=== PATIENT | female | born 1985 | race Caucasian/White ===

== ENCOUNTER → 2020-02-21 13:44 | Outpatient (CLI) | payer SELFPAY ==
[2020-02-21 15:54] LABS: Absolute Lymphocyte Count 1.92 X10^3/uL (0.83-4.51); Absolute Neutrophil Count 6.8 X10^3/uL (2.0-7.7); Basophil# 0.01 X10^3/uL; Basophil% 0.1 % (0-1); Eosinophil# 0.11 X10^3/uL; Eosinophils% 1.2 % (0-5); Hematocrit 37.7 % (37-47); Hemoglobin 12.1 g/dL (12.0-15.0); Lymphocyte # 1.92 X10^3/ul (4.0); Lymphocyte % 20.5 % (19-41); Mean Corp Hgb Conc 32.1 g/dL (32-36); Mean Corpuscular Hgb 28.9 pg (27.0-32.0); Mean Corpuscular Volume 90.2 fL (81-99); Mean Platelet Vol. 9.1 fl (6.2-12.0); Monocyte# 0.47 X10^3/uL; NRBC Flagged by Analyzer 0 % (0-5); Neutrophil % 72.8 % (47-70); Platelet Count 297 K/mm3 (150-450); RBC Distribution Width CV 14.4 % (11.6-14.6); RBC Distribution Width SD 47.7 fl (35.1-43.9); Red Blood Count 4.18 M/mm3 (4.2-5.4); White Blood Count 9.4 K/mm3 (4.4-11.0)
[2020-02-21 15:55] LABS: Color, Urine Yellow (Yellow); Glucose, Dipstick Normal (Normal); Ketone-Dipstick Negative (Negative); Leukocyte Esterase-Dipstick Negative /ul (Negative); Nitrite-Dipstick Negative (Negative); Occult Blood-Urine 10 /ul (Negative); Protein-Dipstick Negative (Negative); Specific Gravity, Urine 1.005 (1.002-1.030); Urine Bilirubin Dipstick Negative (Negative); Urine Clarity Clear (Clear); Urine Urobilinogen Normal (Normal)
[2020-02-21 16:16] LABS: Thyroid Stim Hormone (TSH) 0.91 uIU/mL (0.358-3.74)
[2020-02-22 11:46] LABS: HIV - WCH Non-Reactive (Nonreactive); Hepatitis B Surface Antigen Non-Reactive (Nonreactive); Hepatitis C Antibody Non-Reactive (Nonreactive); Rubella IgG 7.9 IU/mL
[2020-02-25 03:07] LABS: Chlamydia By Nucleic Acid AMP Negative (Negative)
[2020-02-25 08:00] LABS: Gonococcus By Nucleic Acid AMP Negative (Negative)
[2020-02-27 13:16] LABS: HPV Reflexed? NOT INDICATED
[2020-02-28 01:33] LABS: Prenatal RPR NONREACTIVE (NONREACTIVE)
== END ==
PROVIDERS: PCP Family Medicine; Visit Provider Obstetrics & Gynecology
DX: Z34.82 Encounter for supervision of other normal pregnancy, second trimester (principal); Z12.4 Encounter for screening for malignant neoplasm of cervix; Z11.3 Encounter for screening for infections with a predominantly sexual mode of transmission
CPT/HCPCS: 81002; 84443; 85025; 86703; 86762; 86803; 87340; 87491; 87591; 88175; G0145

== ENCOUNTER → 2020-06-11 09:41 | Outpatient (CLI) | payer OTHER, SELFPAY ==
[2017-04-11 10:43] VITALS: BMI 28.1
[2020-06-11 11:39] LABS: Glucose Challenge Gest 1H 50g 163 mg/dL (70-140)
[2020-06-11 11:40] LABS: Hematocrit 33.2 % (37-47); Hemoglobin 10.6 g/dL (12.0-15.0); Mean Corp Hgb Conc 31.9 g/dL (32-36); Mean Corpuscular Hgb 29.4 pg (27.0-32.0); Mean Corpuscular Volume 92.2 fL (81-99); Mean Platelet Vol. 8.8 fl (6.2-12.0); Platelet Count 268 K/mm3 (150-450); RBC Distribution Width CV 13.7 % (11.6-14.6); RBC Distribution Width SD 46.5 fl (35.1-43.9); White Blood Count 8.2 K/mm3 (4.4-11.0)
== END ==
PROVIDERS: PCP Family Medicine; Visit Provider Obstetrics & Gynecology
DX: Z34.83 Encounter for supervision of other normal pregnancy, third trimester (principal)
CPT/HCPCS: 36415; 82950; 85027

== ENCOUNTER → 2020-06-19 06:42 | Outpatient (CLI) | payer OTHER, SELFPAY ==
[2020-06-19 07:26] LABS: Glucose GTT-Gestation. Fasting 84 mg/dL (<105)
[2020-06-19 08:30] LABS: Glucose GTT-Gestational 1 Hr 188 mg/dL (<190)
[2020-06-19 10:05] LABS: Glucose GTT-Gestational 2 Hr 198 mg/dL (<165)
[2020-06-19 10:47] LABS: Glucose GTT-Gestational 3 Hr 169 L (<145)
== END ==
PROVIDERS: PCP Family Medicine; Referring Provider Obstetrics & Gynecology; Visit Provider Obstetrics & Gynecology
DX: O24.912 Unspecified diabetes mellitus in pregnancy, second trimester (principal); Z3A.00 Weeks of gestation of pregnancy not specified
CPT/HCPCS: 36415; 82951; 82952

== ENCOUNTER 2020-07-02 10:31 | Outpatient (RCR) | payer OTHER, SELFPAY | END 2020-07-02 23:59 | disposition home or self-care (01) | LOC: DC 10:31 | PROVIDERS: PCP Family Medicine; Visit Provider Obstetrics & Gynecology | DX: O24.410 Gestational diabetes mellitus in pregnancy, diet controlled (principal); Z3A.00 Weeks of gestation of pregnancy not specified | CPT/HCPCS: G0108 ==

== ENCOUNTER 2020-08-22 05:00 | Inpatient (IN) | payer SELFPAY, OTHER ==
[2017-04-11 10:43] VITALS: BMI 28.1
--- NOTE | 2020-08-21 11:26 | PCM.HP.BLA ---
History and Physical Date of Admission: 08/22/20 ACOG ANTEPARTUM RECORD - HISTORY AND PHYSICAL (08/21/2020) Name: ELISSA CISNEROS History of this : This is a 35 year old [id number] presents at 39 wks + 0 days gestation for repeat . care has been remarkable for well-controlled gestational diabetes with diet. She has had 2 prior sections. OB Physician: Manjinder Bolton MD [facility]er's Physician: [facility] ...................................................................... : 1985 Age: 35 Address: [address] [place] [address] Phone: H) [phone] (O) 100 Insurance Carrier: Emergency Contact: GID OR SANDRA KAIDEN/PARENTS [phone] ...................................................................... Final ULICES: 08/29/20 By Ultrasound: 12 weeks 6 days PARITY: (G-Total Pregnancies P-Fullterm,Premature,Induced AB,Spont AB, Ectopics, Multiple,Living) ULICES CONFIRMATION: By LMP: 11/23/19 Final ULICES: 08/29/20 OB PROBLEM LIST: Elissa's mom just dx w widespread bone cancer at 5 y breast cancer viktoriya. Gestational DM; try diet control first. Presumptive COVID 15 weeks gestation Prior CS --plan repeat LTCCS; prior x 2-- LTCCS confirmed; fibroids removed during first . ALLERGIES: NKDA MEDICATIONS: [place] 3-6-9 40 mg-60 mg-10 unit capsule Vitamin tablet 1 qd Supplement (s) [No Strength] adrenal aide 2 3 x day Supplement (s) [No Strength] liver zainab 2 3 x day SOCIAL HISTORY: Smoking - Never Alcohol Use - None Diet - balanced Diet, caffeine < 2 drinks per day and drinks 2-3 quarts daily Lifestyle - moderate stress lifestyle Exercise - very active, gardening and walking Employer - [employer] Job Description - Illicit Drug Use - None Sexual Activity - Residence - owns a home Place of - [place] Hours Worked - none Spouse-Sig Other Name - Jhony Cisneros Spouse-Sig Other Occupation - Builder Spouse-Sig Other Phone No - [phone] Children Name(s) - Samantha '16, Wanda '17 PRIOR DELIVERY HISTORY DEL DATE GEST LAB WT LB WT OZ TYPE ANES LABOR TX 01 October 29 9 0 0 0 Vag None No Apr 05 39 0 8 13 C-Sec Spinal No Jul 05 39 36 6 15 C-Sec Spinal No ANTEPARTUM FLOW CHART VISIT GE RTC FU F F MS U U DATE WK MD WKS HT PN HR M SS BP ED WT MS GL D EF ST __ ____ ___ __ __ ___ __ __ __ ___ __ __ __ ___ __ 03 Aug JMW 3 38 + + 138/76 sl 166 - - Jul 37 CM 1 37 V + + 110/70 0 168 - - Jul 35 JMW 1 35 + + 124/76 0 167 - - Jun JMW 3 32 + + 108/58 0 166 - - Jul 20 JMW 2 31 + + 120/66 0 163 - - Jun 16 JMW 3 28 + + 114/58 0 162 - - May 13 JMW 4 24 + + 108/64 0 160 - - Apr 08 JMW 4 20 + + 112/62 0 157 - - Mar 05 JMW 3 16 + + 110/70 0 155 tr - ANTEPARTUM NOTE(S): Aug 20 2020: excellent BS--stop checking Aug 11 2020: blood sugars copied Jul 30 2020: Good FM,Forgot BS chart,spouse to fax Thurs. Jul 09 2020: BS copied,Good FM,Feeling Well Jul 02 2020: Feeling Well,Good FM,See Note, BS ok Jun 11 2020: muscle spasms vs ctx's?, none now May 14 2020: Good FM Apr 16 2020: feeling well., US OK Mar 19 2020: feeling well. AM, Declines AFP COMPREHENSIVE ANTEPARTUM NOTE(S): Aug 20 2020: Elissa presents here today for PNV-Pre-op for and BTO with STALIN at [facility] on 08-22-20. Questions answered and consents signed. Per Kiki SCHWARTZ Elissa will have a rapid covid screening the morning of procedure. Blood sugars copied. Good FM and doing well. DANISH Aug 11 2020: Elissa is here for a PNV. Good FM. No edema present. Denies any concerns/issues. Occasional [place]. Blood sugars copied. MK Aug 11 2020: 37/3w visit. GDMA1 - glucose controlled. Discussed diet. Discussed growth to monitor EFW and JAVIER - pt declined. F/u next week to sign consents. C/s on 08/22 @ 4230. CM Jul 02 2020: Here for PNV, then to [facility] Art Department Head appt. for teaching/instructions for checking blood sugars and diet. Admits she just picked up her Glucometer and strips right before coming today. DANISH Jun 11 2020: Elissa is here for a PNV. Good FM. No edema present. Pt reports pain that occurred 05/29 - 06/01. Pt states it felt as if she was having muscle cramps or contractions over her entire abdomen with cramping in the lower abdomen/pelvis area. She states her stomach would harden for 30 sec's then relax. Has not had this happen since. Denies any fluid loss, discharge and spotting. MK May 14 2020: Elissa is being seen for her PNV. Expressed that she would like to know the sex of baby. She reports good FM, and denies swelling in her hands or feet today. Reports that she has some swelling after prolonged sitting at home, swelling goes away after she moves around. Glucola and instructions given today. No other complaints or concerns expressed today. 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 Her , Thomas is a builder. They have two daughters ages 4 1/2 and 2 1/2 y. They're pleased about the . Elissa has had no nausea and the extreme fatigue she experienced is greatly improved. She has NKA to drugs, food, latex Feb 21 2020: ok Feb 21 2020: Elissa presents here today for Missed Menses appointment. 35 y.o. G 4 P 2 non-smoker with regular menses and LMP of 20 lasting her average of 6 days with positive UPT today in our Office. Presents at 12 weeks 5 days with an approximate ULICES of 08-29-20 and plans Repeat at [facility]. Denies spotting/bleeding thus far in . Reports extreme fatigue and rare nausea. Currently taking REVIEW OF SYSTEMS: GENERAL - Denies fever, or chills SKIN - Denies rash, new skin lesions, or change in moles EYES - Denies blurred vision, or change in visual acuity EARS - Denies ear pain, or difficulty hearing NOSE - Denies nasal congestion, discharge, or bleeding MOUTH - Denies sore throat, or difficulty swallowing NECK - Denies pain or swelling RESPIRATORY - Denies shortness of breath, cough, wheezing CARDIOVASCULAR - Denies palpitations, chest pain, orthopnea, PND, peripheral edema, syncope or claudication GASTROINTESTINAL - Denies nausea, vomiting, diarrhea, constipation, Denies abdominal pain, melena and or bright red blood GENITOURINARY - Denies dysuria, frequency of urination, urgency, or hesitancy MUSCULOSKELETAL - Denies joint or muscle pain, or back pain NEUROLOGICAL - Denies localized numbness, weakness, or tingling PSYCHIATRIC - Denies depression, anxiety, substance abuse or suicide attempts ENDOCRINE - Denies heat or cold intolerance, weight loss or gain, increasing thirst HEMATO-IMMUNOLOGIC - Denies easy bruising, bleeding, oral ulcerations or recurrent infections GENETICS SCREENING: Age 35+ years: Yes Thalassemia: No Neural Tube Defect: No Down Syndrome: No DANIEL-SACHS: No Sickle Cell Disease: No Hemophilia: No Musc. Dystrophy: No Cystic Fibrosis: No-declines screening Roxana Chorea: No Mental Retardation: No Fragile X: No Other genetic: No Other defects: No SABs/still births: No Drugs since LMP: No INFECTION HISTORY: High risk AIDS: No High risk Hepatitis: No Exposed to TB: No Exposed to Herpes: No Rash/viral illness since LMP: No History of STD: No MENSTRUAL HISTORY: *Menses Amount/Duration: 6 daysMenses Regularity: RegularFrequency: monthlyMenarche (Age Onset): 9* PAST SUMMARY: PARITY: 1. Total Pregnancies............ 4 2. Full Term Pregnancies........ 2 3. Premature.................... 0 4. Abortions - Induced.......... 0 5. Abortions - Spontaneous...... 1 6. Ectopics..................... 0 7. Multiple Births.............. 0 8. Living Children.............. 2 PAST #1: Date of :.................. 10/19/11 Gestation Weeks:................ 9 Length of labor(hours):......... 0 Sex:............................ UNKNOWN Weight-lbs:............... 0 Weight-oz:................ 0 Type of Delivery:............... Vag Type of Anesthesia:............. None Place of Delivery:.............. HOME Treatment of Labor?:.... No Comment: SAB PAST #2: Date of :.................. 07/18/15 Gestation Weeks:................ 39 Length of labor(hours):......... 36 Sex:............................ F Weight-lbs:............... 6 Weight-oz:................ 15 Type of Delivery:............... C-Sect Type of Anesthesia:............. Spinal Place of Delivery:.............. [facility] Treatment of Labor?:.... No Comment: TAHIRA,IND PAST #3: Date of :.................. 04/11/17 Gestation Weeks:................ 39 Length of labor(hours):......... 0 Sex:............................ F Weight-lbs:............... 8 Weight-oz:................ 13 Type of Delivery:............... C-Sect Type of Anesthesia:............. Spinal Place of Delivery:.............. [facility] Treatment of Labor?:.... No Comment: NO PHYSICAL EXAMINATION General Appearence: 35 yo female in no acute distress Vital Signs: AF, VSS Heart: RRR without rubs or gallops Lungs: CTA x 2 Breasts: deferred Abdomen: gravid Pelvis: Cervix: - Presentation: cephalic Station: - Fetus: Size: AGA Movement: present Heart: present LAB TEST(S) ORDERED SINCE:12/03/19 06/19/2020 GESTATIONAL GTT 3HR 100G 06/11/2020 GLUCOSE CHALLENGE GEST 1H 50G 06/11/2020 CBC-COMPLETE BLOOD CNT NO DIFF 02/28/2020 RPR 02/27/2020 PAP IG W/REFLEX HR HPV APTIMA 02/25/2020 CHLAMYDIA/GC JEANE APTIMA 02/22/2020 RUBELLA IGG 02/22/2020 HIV - [facility] 02/22/2020 HEPATITIS C ANTIBODY 02/22/2020 HEPATITIS B SURFACE ANTIGEN 02/21/2020 URINALYSIS, ROUTINE (DIPSTICK) 02/21/2020 THYROID STIM HORMONE (TSH) 02/21/2020 T AND S-NO CHARGE W/PNP 02/21/2020 CBC W/DIFF, AUTOMATED == ==== Order Observation Description Value Ref_Range A* Site == ==== GESTATIONAL GTT NOTE PORTER GESTATIONAL GTT GLU GTT-FASTING 84 mg/dL <105 ML GLUCOSE TOLERANCE TEST FOR Reference Interval GESTATIONAL DIABETES Fasting <105 mg/dL 1 hour <190 mg/dl 2 hour <165 mg/dl 3 hour <145 mg/dl GESTATIONAL GTT GLU GTT- 1HR 188 mg/dL <190 ML GESTATIONAL GTT GLU GTT- 2HR 198 mg/dL <165 H ML GESTATIONAL GTT GLU GTT- 3HR 169 L <145 H ML CBC-COMPLETE BL NOTE PORTER CBC-COMPLETE BL WBC 8.2 K/mm3 4.4-11.0 ML CBC-COMPLETE BL RBC 3.60 M/mm3 4.2-5.4 L ML CBC-COMPLETE BL HGB 10.6 g/dL 12.0-15.0 L ML CBC-COMPLETE BL HCT 33.2 % 37-47 L ML CBC-COMPLETE BL MCV 92.2 fL 81-99 ML CBC-COMPLETE BL MCH 29.4 pg 27.0-32.0 ML CBC-COMPLETE BL MCHC 31.9 g/dL 32-36 L ML CBC-COMPLETE BL RDW CV 13.7 % 11.6-14.6 ML CBC-COMPLETE BL RDW SD 46.5 fl 35.1-43.9 H ML CBC-COMPLETE BL PLT 268 K/mm3 150-450 ML CBC-COMPLETE BL MPV 8.8 fl 6.2-12.0 ML GLUCOSE CHALLEN NOTE PORTER GLUCOSE CHALLEN GLU GEST 50G 1H 163 mg/dL 70-140 H ML RPR NOTE PORTER RPR RPR NONREACTIVE NONREACTIVE ML PAP IG W/REFLEX NOTE PORTER PAP IG W/REFLEX DIAGN Comment . LC NEGATIVE FOR INTRAEPITHELIAL LESION OR MALIGNANCY. PAP IG W/REFLEX ADEQ Comment . LC Satisfactory for evaluation. Endocervical and/or squamous metaplastic cells (endocervical component) are present. PAP IG W/REFLEX PERFORM Comment . LC Celio Leal, [employer] (ASCP) PAP IG W/REFLEX TEST METHOD Comment . LC This liquid based ThinPrep(R) pap test was screened with the use of an image guided system. PAP IG W/REFLEX COMM . . LC PAP IG W/REFLEX PAPSMR Comment . LC The Pap smear is a screening test designed to aid in the detection of premalignant and malignant conditions of the uterine cervix. It is not a diagnostic procedure and should not be used as the sole means of detecting cervical cancer. Both false-positive and false-negative reports do occur. PAP IG W/REFLEX HPV RFLX Comment . LC The HPV DNA reflex criteria were not met with this specimen result therefore, no HPV testing was performed. Performed at: [facility] - [facility] [id number] [employer]: Karine Weeks MD, Phone: [phone] CHLAMYDIA/GC NA NOTE PORTER CHLAMYDIA/GC NA CHLAMY,NUC ACID Negative Negative LC CHLAMYDIA/GC NA GC BY NUC ACID Negative Negative LC Performed at: =[facility] - [facility] [id number] [employer]: Karine Weeks MD, Phone: [phone] HEPATITIS C ANT NOTE PORTER HEPATITIS C ANT HEPATITIS C AB Non-Reactive Nonreactive ML Non Reactive: < 0.8 Equivocal: >/= 0.8 to < 1.0 Reactive: >/= 1.0 The CDC recommends that a reactive/equivocal HCV antibody result be followed up by the HCV Nucleic Acid Amplification test (027902) HEPATITIS B MARCIN NOTE PORTER HEPATITIS B MARCIN HEPB SURFACE AG Non-Reactive Nonreactive ML HIV - [facility] NOTE PORTER HIV - [facility] HIV - [facility] Non-Reactive Nonreactive ML RUBELLA IGG NOTE PORTER RUBELLA IGG RUBELLA IGG 7.9 IU/mL ML Antibody results Interpretation of Immune Status < 5 IU/ml Presumed Non-immune 5 - < 10 IU/ml Equivocal > or = 10 IU/ml Presumed Immune Reason for Type AND Screen/Red Cells: Surgery? N [facility]~[address] [place], [address]~ T AND BLOOD TYPE GEL A POSITIVE N ML T AND AB SCREEN GEL NEGATIVE N ML THYROID STIM HO NOTE PORTER THYROID STIM HO TSH 0.91 uIU/mL 0.358-3.74 ML URINALYSIS, ROU NOTE PORTER URINALYSIS, ROU COLOR Yellow Yellow ML URINALYSIS, ROU CLARITY Clear Clear ML URINALYSIS, ROU GLUCOSE, UR Normal mg/dl Normal ML URINALYSIS, ROU BILIRUBIN URINE Negative mg/dL Negative ML URINALYSIS, ROU KETONE UR Negative mg/dl Negative ML URINALYSIS, ROU SP.GR. DIPSTX 1.005 1.002-1.030 ML URINALYSIS, ROU PH UR 7.0 5.0 - 8.0 ML URINALYSIS, ROU PROT DIPSTX Negative mg/dl Negative ML URINALYSIS, ROU UROBILI Normal mg/dl Normal ML URINALYSIS, ROU NITRITE UR Negative Negative ML URINALYSIS, ROU OCCULT BLOOD-UR 10 /ul Negative H ML URINALYSIS, ROU LEUK ESTERASE Negative /ul Negative ML CBC W/DIFF, AUT NOTE PORETR CBC W/DIFF, AUT WBC 9.4 K/mm3 4.4-11.0 ML CBC W/DIFF, AUT RBC 4.18 M/mm3 4.2-5.4 L ML CBC W/DIFF, AUT HGB 12.1 g/dL 12.0-15.0 ML CBC W/DIFF, AUT HCT 37.7 % 37-47 ML CBC W/DIFF, AUT MCV 90.2 fL 81-99 ML CBC W/DIFF, AUT MCH 28.9 pg 27.0-32.0 ML CBC W/DIFF, AUT MCHC 32.1 g/dL 32-36 ML CBC W/DIFF, AUT RDW CV 14.4 % 11.6-14.6 ML CBC W/DIFF, AUT RDW SD 47.7 fl 35.1-43.9 H ML CBC W/DIFF, AUT PLT 297 K/mm3 150-450 ML CBC W/DIFF, AUT MPV 9.1 fl 6.2-12.0 ML CBC W/DIFF, AUT NEUT% 72.8 % 47-70 H ML CBC W/DIFF, AUT LY% 20.5 % 19-41 ML CBC W/DIFF, AUT MONO% 5.0 % 0-10 ML CBC W/DIFF, AUT EO% 1.2 % 0-5 ML CBC W/DIFF, AUT BASO% 0.1 % 0-1 ML CBC W/DIFF, AUT IM GRAN % 0.400 % 0.0-0.9 ML IG% - Immature Granulocytes (promyelocytes, myelocytes and metamyelocytes) > 1% indicates that a LEFT SHIFT is Present. CBC W/DIFF, AUT ABSOLUTE NEUT 6.8 X10 3/uL 2.0-7.7 ML CBC W/DIFF, AUT ABSOLUTE LYMPH 1.92 X10 3/uL 0.83-4.51 ML CBC W/DIFF, AUT NRBC, FLAGGED 0 % 0-5 ML == ==== Impression /Plan: 39 wks + 0 days intrauterine for repeat . Preparations in progress for delivery.
[2020-08-22] VITALS (17 sets, daily range): BP systolic 95–119; BP diastolic 39–75; PULSE 56–85; RESP 12–16; TEMP 36.4–37; O2SAT 96–99; BMI 27.6
[2020-08-22] MEDS: Lactated Ringers 1,000 ML 999 ML IV (05:20)
[2020-08-22 05:31] LABS: Absolute Lymphocyte Count 2.34 X10^3/uL (0.83-4.51); Absolute Neutrophil Count 4.5 X10^3/uL (2.0-7.7); Basophil# 0.04 X10^3/uL; Basophil% 0.5 % (0-1); Eosinophil# 0.03 X10^3/uL; Eosinophils% 0.4 % (0-5); Hematocrit 35.3 % (37-47); Hemoglobin 11.4 g/dL (12.0-15.0); Lymphocyte # 2.34 X10^3/ul (4.0); Lymphocyte % 31.6 % (19-41); Mean Corp Hgb Conc 32.3 g/dL (32-36); Mean Corpuscular Hgb 29.2 pg (27.0-32.0); Mean Corpuscular Volume 90.3 fL (81-99); Mean Platelet Vol. 9.3 fl (6.2-12.0); Monocyte# 0.45 X10^3/uL; Monocyte% 6.1 % (0-10); NRBC Flagged by Analyzer 0 % (0-5); Neutrophil % 60.7 % (47-70); Platelet Count 205 K/mm3 (150-450); RBC Distribution Width CV 13.9 % (11.6-14.6); RBC Distribution Width SD 45.6 fl (35.1-43.9); Red Blood Count 3.91 M/mm3 (4.2-5.4); White Blood Count 7.4 K/mm3 (4.4-11.0)
[2020-08-22 05:56] LABS: Bedside Glucose 182 mg/dL (70-110)
--- NOTE | 2020-08-22 06:05 | NURSING ---
Dr. Bolton called and notified of BGT on admission of 182. No new orders or recheck order given at this time.
[2020-08-22] MEDS: Lactated Ringers 1,000 ML 150 ML IV (06:20)
[2020-08-22] MEDS: Acetaminophen 500 MG Tablet 1000 MG PO ×3 (06:29→18:40)
[2020-08-22] MEDS: Sodium Citrate/Citric Acid 30 ML UDC PO (07:01)
[2020-08-22] MEDS: Cefazolin 2 GM in 0.9% Normal Saline 100 ML IV (07:15)
--- NOTE | 2020-08-22 07:18 | OP.PCM_ITS ---
Delivery Classification: Scheduled Final ULICES: 08/29/20 Final ULICES Source: US <20 weeks Gestational age: 39 Weeks and 0 Days solutions developer: Raji Nguyen Type of Anesthesia:: Spinal - With Duramorph Implants Used: None Date of Procedure: 08/22/20 Pre-Operative Diagnosis: Previous Section and Desires Permanent Sterilization Post-Operative Diagnosis: Previous Section and Desires Permanent Sterilization Description of Procedure: Surgeon: Manjinder Bolton MD, FACOG Anesthesia: Tessy Babin CRNA Procedure: Repeat Low Transverse Cervical Caesarean Section And Bilateral Salpingectomy Findings: Viable male infant with Apgars of 8/9 in occiput anterior presentation with clear amniotic fluid and normal three-vessel placenta. Indication: This is a 35-year-old who presents for her third at 39 weeks gestation. care has otherwise been uneventful. The patient has been counseled regarding the risk and indications of this procedure including the possibility of bleeding infection and injury to surrounding structures such as bowel bladder. The patient also desires permanent sterilization. She understands the permanent nature of this procedure, the failure rate of 1 to 2%, and the availability of other nonpermanent control options. All questions were answered. Procedure: Patient was taken to the operating room where after spinal anesthesia was placed, the patient was prepped and draped in usual sterile fashion and a Tran catheter was placed. The abdomen was entered through the patient's prior Pfannenstiel incision and peritoneum was entered bluntly. After developing a bladder flap on the lower uterine segment a low transverse incision was made on the uterus and head was easily delivered onto the operative field the nose mouth and oropharynx were bulb suctioned. Subsequently a viable male was born with Apgars of 8/9. The was noted to cry move all extremities vigorously on the operative field. The umbilical cord was doubly clamped and ligated and handed to the nursery personnel who were present for the delivery. Placenta was delivered and noted to be 3 vessels and normal. Uterus was exteriorized and remaining placental tissue was removed. The uterus was then closed in 2 layers first with running locked 0 Vicryl suture followed by a second imbricating layer with 0 Vicryl suture. 0 Vicryl suture was then used in a horizontal mattress interrupted fashion to affect final hemostasis of the uterine incision line. Normal fallopian tubes and ovaries were visualized and mesosalpinx on each tube was ligated with the LigaSure device. The uterus was returned to the pelvis. Hemostasis was noted and rectus abdominis muscles were reapproximated in the midline with interrupted Number 0 Vicryl suture in a horizontal mattress fashion. Fascia was closed with running Number 1 PDS Strata fix suture. Subcutaneous tissue was irrigated with copious amounts of saline solution and then closed with running 3-0 Vicryl suture. Skin was closed with 4-0 monocryl suture in a running subcuticular fashion. Steri strips and a Mepilex dressing were placed across the incision. The patient tolerated the procedure well and was taken to the recovery room in satisfactory condition. Sponge, needle, and instrument counts were all reportedly correct. EBL was less than 500 cc. Ancef 2 gms IV was given prior to the procedure. Spicemen to Pathology: Bilateral fallopian tubes Complications: None Amniotic Fluid Description: Clear Placenta Disposition: [facility] Specimen(s) sent to pathology: Bilateral fallopian tubes Drain: Tran to straight drain Fluids Replaced: Crystalloid Cord Entanglement: None Cord Vessel Description: 3 Vessels Esitmated Blood Loss (ml): 500 cc Antibiotic Given: Ancef 2 grams IV x1 Pt instructed on risks of surgery: Bleeding, Infection, Permanency, Failure Rate of 1 to 2%, Injury to surrounding structure(s) including bowel and bladder, Availability of other non-permanent control options Complications: None - Admit VTE Documentation VTE Present on Admission: Yes VTE Mechan Device Prophylaxis: SCD's
--- NOTE | 2020-08-22 07:22 | DCINST_ITS ---
<Manjinder Bolton - Last Filed: 08/22/20 07:22> Discharge Diet: No Restrictions Discharge Activity: May not drive while taking narcotic pain medications., May Shower, May Take a Tub Bath May resume sexual activity in: 4-6 weeks Lifting Restrictions: 20 pounds Additional Activity Instructions:: Nothing in the vagina for 4-6 weeks. You may return to work/school in 6 weeks. Call your doctor if your incision/area has: Continuous Slow Oozing, Sudden Increased Bleeding, Increased Pain/ Swelling, Increased Redness, Foul Smelling Discharge Call your doctor if you observe: Fever of 101 or Higher, Inability to urinate, Inability to have a bowel movement, Using more than one pad per hour Additional Instructions: If you experience any of the following, contact your healthcare provider. * Bleeding that soaks a pad every hour for 2 hours * Fever 100.4 or higher * Unrelieved incision or abdominal pain * Swelling, redness, discharge or bleeding from your incision or episiotomy site * Your incision begins to separate * Problems urinating (including inability to urinate or burning while urinating). * Visual changes * Severe headache * Flu-like symptoms * Pain or redness in one of both of your breasts * Pain, warmth, tenderness or swelling in your legs, especially the calf area * Frequent nausea and vomiting * Symptoms of depression or anxiety If you experience any of the following, call 911 or go to the nearest Emergency Room. * Chest pain * Problems breathing * Seizure activity * Partial or complete paralysis of a body part, slurred speech, weakness or drooping of the face, or a sudden inability to walk or hold your balance Allergies/Adverse Reactions: Allergies No Known Allergies Allergy (Verified 08/22/20 05:18) Medications to take at Discharge Vits [Prenatabs FA ] 1 tab PO DAILY 03/27/17 Docusate Sodium [Colace] 100 mg PO BID PRN PRN #60 cap 08/22/20 Oxycodone [Oxyir] 5 mg PO Q6H PRN PRN 7 Days #10 tab 08/22/20 The following prescriptions were given: Docusate Sodium [Colace] 100 mg PO BID PRN PRN #60 cap PRN Reason: Constipation Transmission Status: Received by [id number] Oxycodone [Oxyir] 5 mg PO Q6H PRN PRN 7 Days #10 tab PRN Reason: Pain Score 6-10 Transmission Status: Received by [id number] Follow-Up: Call to make an appointment with your doctor for an incision check in 1-2 weeks. You will also need a 6 week post- follow up appointment. Test results from this visit will be discussed in further detail at your follow- up appointment, if applicable. Please Follow Up With: Manjinder Bolton MD - [phone] When: Call to make an appointment for an incision check in 2 weeks. Primary Care Physician: Eber Harrison MD [Primary Care Provider] - <Kapil Allred - Last Filed: 08/23/20 09:19> Additional Instructions: If you experience any of the following, contact your healthcare provider. * Bleeding that soaks a pad every hour for 2 hours * Fever 100.4 or higher * Unrelieved incision or abdominal pain * Swelling, redness, discharge or bleeding from your incision or episiotomy site * Your incision begins to separate * Problems urinating (including inability to urinate or burning while urinating). * Visual changes * Severe headache * Flu-like symptoms * Pain or redness in one of both of your breasts * Pain, warmth, tenderness or swelling in your legs, especially the calf area * Frequent nausea and vomiting * Symptoms of depression or anxiety If you experience any of the following, call 911 or go to the nearest Emergency Room. * Chest pain * Problems breathing * Seizure activity * Partial or complete paralysis of a body part, slurred speech, weakness or drooping of the face, or a sudden inability to walk or hold your balance Follow-Up: Call to make an appointment with your doctor for an incision check in 1-2 weeks. You will also need a 6 week post- follow up appointment. Test results from this visit will be discussed in further detail at your follow- up appointment, if applicable.
[2020-08-22] MEDS: Oxytocin 30 units/NS 500 ml 30 UNITS/500 ML IV.SOLN 167 UNITS IV (08:55)
--- NOTE | 2020-08-22 09:17 | FALS_PTH ---
PATIENT: SIERRA RICHEY LOC: [facility] U#:[id number] AGE/SX: 35/F ROOM: WP007 RE08/22/[address]: Dr. Manjinder Bolton MD : 1985 BED: 1 DIS: 08/23/2020 SPEC #: [id number] RECD: 08/22/20 09:17 STATUS: LIZZY REVaibhav #: [id number] MICHAEL: 08/22/20 09:[address]: Manjinder Bolton DEPT: SURGICAL PATHOLOGY RECD BY: Swapna Morales ENTERED: 08/22/20 10:00 SP TYPE: FALL TUBES OTHR DR: Dr. Eber Harrison MD Tissues: Fallopian tube Procedures: Surgery Specimen Level II HEADER OPERATION: Tubal ligation PRE-OP DIAGNOSIS: Sterilization TISSUE SUBMITTED: Fallopian tubes, left tube has stitch MICROSCOPIC DIAGNOSIS Right fallopian tube, salpingectomy: Complete cross section of fallopian tube with no pathologic change. Left fallopian tube, salpingectomy: Complete cross section of fallopian tube with no pathologic change. AM:nelson 08/25/2020 MICROSCOPIC DESCRIPTION Slides are reviewed. GROSS DESCRIPTION Received in fixative is one container labeled with the patient's name and designated bilateral fallopian tubes, left with stitch. The specimen consists of bilateral fallopian tubes including fimbrial ends. The right fallopian tube measures 9 cm in length and up to 1 cm in diameter and the left fallopian tube measures 8 cm in length and up to 0.9 cm in diameter. Sections reveal unremarkable cut surfaces. Button Attaching Machine Operator sections are submitted in two cassettes as follows: 1 - right fallopian tube, 2 - left fallopian tube. / SJ:nelson 08/22/20 TC:4 CPT: 59661 x2
[2020-08-22 09:19] LABS: Pathology Specimen OB SEE PATHOLOGY REPORT
--- NOTE | 2020-08-22 09:29 | NURSING ---
Incentive spirometer brought into room. This RN instructed patient on use. Patient demonstrated use back to RN satisfactorily.
[2020-08-22] MEDS: Senna/Docusate Sodium 1 Tablet PO (11:50)
[2020-08-22] MEDS: Lactated Ringers 1,000 ML 100 ML IV (12:23)
[2020-08-22] MEDS: Ketorolac 30 MG/ML Syringe IV ×2 (13:50→19:53)
[2020-08-22] MEDS: Ondansetron 4 MG/2 ML Vial IV (13:50)
[2020-08-22] MEDS: Cefazolin 1 GM/50 ML BAG IV ×2 (14:53→23:03)
[2020-08-22] MEDS: 0.9% Saline Lock 10 ML Syringe IV ×2 (19:53→23:03)
[2020-08-23] MEDS: 0.9% Saline Lock 10 ML Syringe IV ×2 (01:30→07:56)
[2020-08-23] MEDS: Ketorolac 30 MG/ML Syringe IV ×2 (01:30→07:55)
[2020-08-23] MEDS: Acetaminophen 500 MG Tablet 1000 MG PO ×2 (01:30→06:50)
[2020-08-23 04:01] VITALS: BP 103/61; PULSE 81; RESP 16; TEMP 36.7
[2020-08-23 06:01] LABS: Bedside Glucose 67 mg/dL (70-110)
[2020-08-23 06:03] LABS: Hematocrit 29.3 % (37-47); Hemoglobin 9.6 g/dL (12.0-15.0); Mean Corp Hgb Conc 32.8 g/dL (32-36); Mean Corpuscular Volume 91.6 fL (81-99); Platelet Count 168 K/mm3 (150-450); RBC Distribution Width CV 14.2 % (11.6-14.6); RBC Distribution Width SD 47.3 fl (35.1-43.9); White Blood Count 9.6 K/mm3 (4.4-11.0)
--- NOTE | 2020-08-23 06:10 | NURSING ---
Pts fasting blood sugar 67, snack provided. Pt denies any symptoms of hypoglycemia at this time.
[2020-08-23 07:59] VITALS: BP 111/55; PULSE 91; RESP 16; TEMP 36.4
--- NOTE | 2020-08-23 09:18 | PN.OBGYN_ITS ---
Subjective: No overnight complaints. Pain well controlled. - Physical Exam Vitals/I&O's: Vital Signs Temp Pulse Resp BP Pulse Ox 97.6 F L 91 16 111/55 L 98 08/23/20 07:59 08/23/20 07:59 08/23/20 07:59 08/23/20 07:59 08/22/20 18:40 Oxygen Delivery Method Room Air Weight: 166 lb 3.2 oz Body Mass Index (BMI) 27.6 Intake and Output for Last 24 Hours 08/21/20 08/22/20 08/23/20 23:59 23:59 23:59 Intake Total 4224.17 / 4224.17 Output Total 2650 / 2650 Balance 1574.17 / 1574.17 General: Alert, Oriented x3, Cooperative, No apparent distress HEENT: Atraumatic, Normocephalic Oral: Moist Mucosa Neck: Supple Extremities: No clubbing, No cyanosis, No edema Neurological: Neuro grossly intact Psych/Mental Status: Normal Affect, Appropriate, Alert and oriented to time, place, person, mood and affect Laboratory Results 08/23/20 05:50: WBC 9.6, RBC 3.20 L, Hgb 9.6 L, Hct 29.3 L, MCV 91.6, MCH 30.0, MCHC 32.8, RDW Std Deviation 47.3 H, RDW Coeff of Jarvis 14.2, Plt Count 168, MPV 9.0 08/23/20 05:56: POC Glucose 67 L Current Medications Acetaminophen (Acetaminophen 500 Mg Tablet) 1,000 mg PO Q6H [facility] Last Admin: 08/23/20 06:50 Dose: 1,000 mg Documented by: Bisacodyl (Bisacodyl 10 Mg Suppository) 10 mg RC UD PRN PRN Reason: If no BM Hydrocortisone (Hydrocortisone 2.5% Crm) 1 applic TOPICAL TID PRN PRN; Protocol PRN Reason: Discomfort Lactated Ringer's () 1,000 mls @ 100 mls/hr IV .Q10H [facility] Last Admin: 08/22/20 23:42 Dose: Not Given Documented by: Ibuprofen (Ibuprofen 600 Mg Tablet) 600 mg PO Q6H [facility] Methylergonovine Maleate (Methylergonovine 0.2 Mg/Ml Ampul) 0.2 mg IM X1 PRN PRN Reason: Uterine Atony Naloxone HCl (Naloxone 0.4 Mg/Ml Syringe) 0.02 mg IV Q1M PRN PRN Reason: RR <10 and pt unresponsive Ondansetron HCl (Ondansetron 4 Mg/2 Ml Vial) 4 mg IV Q4H PRN PRN PRN Reason: Nausea Last Admin: 08/22/20 13:50 Dose: 4 mg Documented by: Oxycodone HCl (Oxycodone 5 Mg Tablet) 5 - 10 mg PO Q4H PRN PRN PRN Reason: Pain Score 4-10 Prochlorperazine Edisylate (Prochlorperazine 10 Mg/2 Ml Vial) 10 mg IV Q6H PRN PRN PRN Reason: NAUSEA Senna/Docusate Sodium (Senna/Docusate Sodium 1 Tablet) 0 tablet PO DAILY ALDO Last Admin: 08/22/20 11:50 Dose: 1 tablet Documented by: Simethicone (Simethicone 80 Mg Tablet) 80 mg PO PCHS PRN PRN Reason: Indigestion/stomach pain Sodium Chloride (0.9% Saline Lock 10 Ml Syringe) 5 - 15 ml IV UD PRN PRN Reason: SALINE FLUSH Last Admin: 08/23/20 07:56 Dose: 10 ml Documented by: Medical Necessity - Tobacco Use Smoking Status: Never smoker Assessment/Plan Postop day 1 status post repeat and bilateral tubal ligation. Pain well controlled. Okay to discharge home today
[2020-08-23] MEDS: Senna/Docusate Sodium 1 Tablet PO (10:05)
== END 2020-08-23 10:55 | disposition home or self-care (01) | DRG 785 ==
PROVIDERS: Admitting Provider Obstetrics & Gynecology; PCP Family Medicine; Referring Provider Obstetrics & Gynecology; Visit Provider Obstetrics & Gynecology
PROC: 10D00Z1 Extraction of Products of Conception, Low, Open Approach (ICD-10-PCS; CPT 59514; principal; 2020-08-22 07:15)
DX: O24.420 Gestational diabetes mellitus in childbirth, diet controlled (principal); Z3A.39 39 weeks gestation of pregnancy; Z37.0 Single live birth
CPT/HCPCS: 82962; 85025; 85027; 86850; 86900; 86901; 88302; 99218; J7120; A4216; G0378; J2405